=== PATIENT | male | born 1970 | race Caucasian/White ===

== ENCOUNTER 2020-03-10 21:57 | Emergency (ER) | payer OTHER ==
[~2020-03-10] VITALS: Ht 180.3 cm; Wt 73.9 kg
[2020-03-10 22:36] VITALS: BP 127/85
== END 2020-03-11 00:20 | disposition home or self-care (01) ==
LOC: ER 22:05
DX: R07.81 Pleurodynia (principal); M54.6 Pain in thoracic spine; M25.562 Pain in left knee; V49.69XA Unspecified car occupant injured in collision with other motor vehicles in traffic accident, initial encounter; Y93.89 Activity, other specified; Y92.413 State road as the place of occurrence of the external cause; Y99.8 Other external cause status
CPT/HCPCS: 71111-TC; 73564-TC